=== PATIENT | female | born 1990 | race Hispanic/Latino ===

== ENCOUNTER 2018-05-22 01:45 | Emergency (ER) | payer OTHER ==
--- NOTE | 2018-05-22 07:57 | RAD ---
RIGHT SHOULDER 3 VIEWS: Date: 05/22/18 HISTORY: Injury, trauma, right shoulder pain. FINDINGS/IMPRESSION: No acute fracture or dislocation is identified. POS: [facility]
== END 2018-05-22 02:31 | disposition home or self-care (01) ==
LOC: ERS 01:45
DX: S40.011A Contusion of right shoulder, initial encounter (principal); W22.8XXA Striking against or struck by other objects, initial encounter

== ENCOUNTER 2018-08-26 10:42 | Outpatient (CLI) | payer MEDICAID ==
--- NOTE | 2018-08-26 12:42 | ULT ---
PELVIC ULTRASOUND INCLUDING TRANSABDOMINAL AND VASCULAR DUPLEX WITH COLOR AND SPECTRAL DOPPLER IMAGIN G: HISTORY: This is a 27-year-old female with a history of followup ovarian cyst. No transvaginal examination wa s performed. FINDINGS: The uterus measures 9.3 x 4.3 x 1.2 cm. The endometrium is 1.2 cm. The right ovary measures 1.3 x 1 .9 x 2.6 cm. The left ovary measures 1.7 x 1.9 x 2.8 cm. Vascular duplex with color and spectral Doppler imaging demonstrates vascular flow to both ovaries. No evidence for ovarian torsion. IMPRESSION: 1. Unremarkable pelvic ultrasound. 2. No evidence for significant ovarian cyst. POS: [facility]
== END 2018-08-26 10:43 | disposition home or self-care (01) ==
LOC: BICULT 10:42
PROVIDERS: ATTEND Family Medicine
DX: Z87.42 Personal history of other diseases of the female genital tract (principal)
CPT/HCPCS: 76856; 93976

== ENCOUNTER 2018-09-18 01:29 | Emergency (ER) | payer MEDICAID, OTHER ==
[2018-09-19] MEDS ORDERED: Adacel (T-DAP) 0.5 ML VIAL ONE (01:47)
[2018-09-19] MEDS ORDERED: Lidocaine 1% (PF) 30 ML VIAL ONE (03:07)
[2018-09-19] MEDS ORDERED: Acetaminophen 500 MG TAB ONE (03:41)
[2018-09-19 03:55] LABS: Pregnancy Test - Urine (BHCG) Negative (Negative)
[2018-09-19 03:56] LABS: Pregu Control Background? CLEAR/WHITE (CLR/WHITE); Pregu Control Bar Appear? YES (CONTROL BAR); Specific Gravity 1.026 (1.002-1.036)
--- NOTE | 2018-09-19 12:06 | RAD ---
RIGHT HAND 3 VIEWS: HISTORY: Cut hand while washing dishes. FINDINGS: No radiopaque foreign bodies are seen. I do not see any signs of fracture. IMPRESSION: No evidence of fracture or radiopaque foreign bodies. POS: [facility]
== END 2018-09-19 03:50 | disposition home or self-care (01) ==
LOC: ERS 09-19 01:29
DX: S61.111A Laceration without foreign body of right thumb with damage to nail, initial encounter (principal); W27.8XXA Contact with other nonpowered hand tool, initial encounter
CPT/HCPCS: 81025; 90471; 90715; J2001

== ENCOUNTER 2018-12-07 07:51 | Outpatient (CLI) | payer MEDICAID ==
--- NOTE | 2018-12-07 09:35 | ULT ---
LIMITED BILATERAL BREAST ULTRASOUND: DATE: 12/07/2018. PROVIDED CLINICAL HISTORY: Bilateral breast pain. FINDINGS: Limited sonographic interrogation was performed of each breast in the regions of patient pain. The s onographic appearance of the breast tissue in these regions is normal. IMPRESSION: No sonographic abnormality is evident in either breast to explain the patient's breast pain. Negativ e imaging findings should not preclude further evaluation of a clinically suspicious area. The patie nt is referred back to her clinician. POS: [facility]
== END 2018-12-07 07:52 | disposition home or self-care (01) ==
LOC: BICULT 07:51
PROVIDERS: ATTEND Advanced Practice Midwife
DX: N64.4 Mastodynia (principal)

== ENCOUNTER 2019-03-12 13:38 | Outpatient (CLI) | payer MEDICAID ==
--- NOTE | 2019-03-12 14:33 | ULT ---
PELVIC ULTRASOUND: Date: 03/12/19 COMPARISON: None. HISTORY: Painful periods for 1 year. History of ovarian cysts. TECHNIQUE: Multiplanar Daniels scale and color Doppler images were obtained in a transabdominal ultrasound. FINDINGS: The uterus is normal in size and appearance without focal abnormality. The endometrial stripe is norm al in thickness, measuring 8.0 mm. No free fluid is seen in the pelvis. Both ovaries are normal in size and appearance without focal abn ormality. IMPRESSION: Unremarkable exam. POS: [facility]
== END 2019-03-12 13:39 | disposition home or self-care (01) ==
LOC: BICULT 13:38
PROVIDERS: ATTEND Advanced Practice Midwife
DX: F41.9 Anxiety disorder, unspecified (principal)
CPT/HCPCS: 76856

== ENCOUNTER 2020-05-26 04:51 | Outpatient (CLI) | payer OTHER, SELFPAY ==
[2020-05-26 11:19] LABS: Mean Corpuscular HGB CONC 32.6 g/dL (32.0-36.0); Mean Corpuscular Hemoglobin 29.5 pg (27.0-31.0); Mean Corpuscular Volume 90.5 fL (78.0-98.0); Mean Platelet Volume 9.9 fL (7.4-10.4); Platelet Count 236 thou/uL (130-400); RBC Distribution Width 12.2 % (11.5-14.5); White Blood Cell (WBC) Count 7.6 thou/uL (4.8-10.8)
[2020-05-26 11:28] LABS: BHCG - Serum Negative (NEGATIVE); Pregs Control Background? CLEAR/WHITE (CLR/WHITE); Pregs Control Bar Appear? YES (CONTROL BAR)
[2020-05-27 12:37] LABS: SARS-CoV-2 MS2 Positive; SARS-CoV-2 N Gene Negative; SARS-CoV-2 S Gene Negative; SARS-CoV-2 orf1ab Negative
== END 2020-05-26 04:52 | disposition home or self-care (01) ==
LOC: LABBT 04:51
PROVIDERS: ATTEND Obstetrics & Gynecology
DX: Z01.812 Encounter for preprocedural laboratory examination (principal); Z11.59 Encounter for screening for other viral diseases; N80.3 Endometriosis of pelvic peritoneum
CPT/HCPCS: 84703; 85027; 86850; 86870; 86900; 86901; 87635; U0003

== ENCOUNTER 2020-05-29 06:06 | Day surgery (SDC) | payer OTHER, SELFPAY ==
[2020-05-25 09:14] VITALS: BMI 35.0
[2020-05-29] MEDS ORDERED: CeleCOXIB 100 MG CAP ONE (06:10)
[2020-05-29] MEDS ORDERED: Gabapentin 300 MG CAP ONE (06:10)
[2020-05-29] MEDS ORDERED: Famotidine/PF 20 mg/2ml Vial ONE (06:10)
[2020-05-29] MEDS ORDERED: Fentanyl 100 MCG/2 ML VIAL ONE ×3 (06:36→09:54)
[2020-05-29] MEDS ORDERED: Lidocaine 2% Jelly 5 ML TUBE ONE (06:36)
--- NOTE | 2020-05-29 06:39 | HP ---
HISTORY OF PRESENT ILLNESS: Ms. Naylor is a 29-year-old female, G2, P2 with two prior spontaneous vaginal deliveries, who has been having increasing chronic pelvic pain issues with dyspareunia. She also has irregular menstrual bleeding. She has had medical therapy trials of oral contraceptives of Loestrin 12/06 and had minimal improvement and also was placed on Orilissa 200 mg b.i.d. This did help her pain, but she started having abnormal liver function tests due to Orilissa and had to discontinue. She has had a tubal ligation and she does have a family history of endometriosis. She is desiring definitive surgical therapy. PAST MEDICAL HISTORY: Significant for asthma and reflux. PAST SURGICAL HISTORY: She has had an inguinal hernia repair and bilateral tubal ligations. FAMILY HISTORY: Noted for endometriosis. SOCIAL HISTORY: Nonsmoker. No excessive alcohol use. CURRENT MEDICATIONS: 1. Albuterol inhaler two puffs q.6 hours p.r.n. 2. She has cyclobenzaprine 10 mg tablet three times a day as needed for back muscle spasm. 3. Pantoprazole 40 mg tablet daily. PHYSICAL EXAMINATION: VITAL SIGNS: Height 5 feet 3 inches, weight 207 pounds, BMI 36.7, blood pressure is 138/86, pulse 96, respirations 18, and O2 saturation on room air 99%. HEENT: Within normal limits. CHEST: Clear to auscultation. HEART: Regular rate and rhythm. S1 and S2 heart sounds. No murmurs, rubs, or gallops. ABDOMEN: Soft, nontender, nondistended with no palpable masses. PELVIC: Vulva and vagina had no lesions. Cervix had no lesions. She is up-to-date with normal Pap smear in the past 3 years. Her uterus was not enlarged, but it was tender on exam. Adnexa had no masses, but were tender on exam. Transvaginal ultrasound that was obtained in my office showed normal appearing uterus and adnexal structures. A urinalysis also performed was negative. ASSESSMENT: This is a 29-year-old female, G2, P2 with prior tubal ligation with clinical findings consistent with adenomyosis of the uterus, endometriosis of the pelvis. She did have some improvement in her pain with Orilissa, but did not tolerate this due to abnormal liver enzyme elevations. PLAN: Plan is to proceed with definitive surgical therapy with robotic total laparoscopic hysterectomy with bilateral salpingo-oophorectomy. Risks and benefits of procedure have been discussed in detail. I did discuss use of estrogen post hysterectomy and removal of her ovaries due to her young age. She is set for surgery on 05/29. Job ID: [id number]
[2020-05-29] MEDS ORDERED: Bupivacaine PF 0.5% 30 ML VIAL ONE (06:55)
[2020-05-29] MEDS ORDERED: Lidocaine 1% w/Epinephrine 1:100K 20 ML VIAL ONE (06:55)
[2020-05-29] MEDS ORDERED: Levofloxacin 500 mg/D5W 100 ml Premix Bag ONE (07:01)
[2020-05-29] MEDS ORDERED: Clindamycin/D5W 900 mg/50 ml Premix Bag ONE (07:01)
[2020-05-29] MEDS ORDERED: Midazolam HCl 2 mg/2 ml Vial ONE (07:14)
[2020-05-29] MEDS ORDERED: Simethicone Chewable 80 MG TAB PO PRN (08:59)
[2020-05-29] MEDS ORDERED: diphenhydrAMINE 25 MG CAP PO PRN (08:59)
[2020-05-29] MEDS ORDERED: Ondansetron PF 4 MG/2 ML Vial IVP PRN (08:59)
[2020-05-29] MEDS ORDERED: Morphine 4 MG/ML VIAL SLOW IVP PRN (08:59)
[2020-05-29] MEDS ORDERED: Promethazine HCl 25 MG/ML VIAL IM PRN ×2 (08:59→09:10)
[2020-05-29] MEDS ORDERED: HYDROcodone/Acetaminophen 5/325 mg Tablet PO PRN ×2 (08:59)
[2020-05-29] MEDS ORDERED: Zolpidem Tartrate 5 MG TAB PO PRN (08:59)
[2020-05-29] MEDS ORDERED: Docusate 100 MG CAP PO SCH (09:00)
[2020-05-29] MEDS ORDERED: Estradiol 0.05mg/24 Hour Patch (Weekly) TD SCH (09:00)
[2020-05-29] MEDS ORDERED: Promethazine HCl 25 MG/ML VIAL SLOW IVP PRN (09:10)
[2020-05-29] MEDS ORDERED: Ondansetron HCl/PF 4 MG/2 ML Vial IVP PRN (09:10)
[2020-05-29] MEDS ORDERED: Estradiol 0.1mg/24 Hour Patch (Weekly) TD ONE (09:20)
--- NOTE | 2020-05-29 10:12 | OP ---
DATE OF PROCEDURE: 05/29/2020 PREOPERATIVE DIAGNOSES: 1. A 29-year-old female, G2, P2, with prior tubal ligation with menorrhagia, dysmenorrhea, chronic pelvic pain, unresponsive to and intolerant of medical therapy. 2. Presumed adenomyosis and endometriosis of the uterus and pelvis. POSTOPERATIVE DIAGNOSES: 1. A 29-year-old female, G2, P2, with prior tubal ligation with menorrhagia, dysmenorrhea, chronic pelvic pain, unresponsive to and intolerant of medical therapy. 2. Presumed adenomyosis and endometriosis of the uterus and pelvis. PROCEDURE PERFORMED: Robotic total laparoscopic hysterectomy and bilateral salpingo-oophorectomy. AUTOMOTIVE PROFESSIONAL SURGEON: MALLORIE Aparicio. ANESTHESIA: General endotracheal. ESTIMATED BLOOD LOSS: 25 mL. COMPLICATIONS: None. COUNTS: Correct x2. ANTIBIOTICS: Levaquin and clindamycin per [facility]IP protocol. PATHOLOGY: Uterus, cervix, bilateral tubes and ovaries. FINDINGS: 1. Bilateral fallopian tubes were status post tubal ligation and ovaries appeared normal. 2. Uterus was boggy and hyperemic, consistent with adenomyosis. 3. There were peritoneal windows in the posterior cul-de-sac from previous endometriotic scarring. 4. Clear urine present in Jj catheter postprocedure and bilateral ureteral peristalsis visualized postprocedure with ureter pathways inferior to the operative field site. DISPOSITION: Recovery room, stable. DESCRIPTION OF PROCEDURE: The patient previously received informed consent in regard to surgery. She was taken back to the operating room, where she received a general endotracheal anesthetic agent without complications. She was placed in the dorsal lithotomy position, prepped and draped in usual sterile fashion. Jj catheter was placed at this time. A side-arm speculum was placed in the vagina. The anterior lip of the cervix was grasped with a single-tooth tenaculum. The uterus was sounded to 8 cm. A size 8 cm LISA uterine manipulator with 4.0 cm cervical cup was placed. Tenaculum and speculum were removed. Attention was then turned to the abdomen, where perspective trocar sites were infiltrated with 0.5% Marcaine with epinephrine. A 12 mm supraumbilical incision was made and Veress needle was entered into the peritoneal cavity. The patient's pressure was noted to be less than 5 mm and the abdomen was insufflated to a patient's pressure of 15 mm and approximately 4.5 L of carbon dioxide gas. Veress needle was then removed and a size 12 mm trocar was placed. The robotic laparoscope was then introduced through the trocar sleeve, confirming proper entry. We then placed the patient in Trendelenburg position and additional bilateral lower quadrant 8 mm robotic trocars were placed under laparoscopic guidance along with the right upper quadrant 11 mm optometrist assistant port. I then broke scrub and my assistants docked the robot in usual fashion. I proceeded to carry out the surgery from the operative console while my assistants remained at the bedside. The uterus was elevated from the pelvis. Bilateral adnexal structures were identified with the previously mentioned findings. My optometrist assistant grasped the fimbria of the left fallopian tube and then I took down some sigmoid colon adhesions to the IP ligament and the filmy adhesion surface atraumatically. The IP ligament was then coagulated hugging close to the ovary, coagulated with bipolar fenestrated cautery and transected. Serial coagulation of the broad ligament hugging close to uterine specimen was carried out with coagulation and transection until the left round ligament was reached. It was then coagulated and transected. The anterior leaf of the broad ligament was entered and the vesicouterine peritoneum reflection was incised with monopolar scissors and direct visualization. Also skeletonization of the uterine vessels was carried out both taking down the peritoneum anteriorly and posteriorly. I coagulated the uterine vessels after skeletonization of the internal cervical os region. I then proceeded in a layering technique to take down the vesicouterine peritoneum and bladder safely past the cervicovaginal margin. Once this was completed, we carried out the same procedure on the right side, again the right IP ligament was isolated, it was coagulated hugging close to the ovary. It was transected after bipolar coagulation and then with serial coagulation of broad ligament hugging close to the specimen of the uterus, it was coagulated and transected again until the right round ligament was reached. It was coagulated and transected again, anterior leaf of the peritoneum was entered and this was dissected, completing the vesicouterine peritoneal dissection, dropping the bladder past the cervicovaginal margin. Again, the uterine vessels were skeletonized anteriorly and posteriorly and coagulated meticulously at the internal cervical os region. Once we felt we had adequately dropped the bladder past the operative field and the uterine vessels were secured with hemostasis, the anterior colpotomy was then performed, it started from 12 to 3 and 12 to 9 o'clock positions. The uterine vessels that remained at the 3 o'clock and 9 o'clock positions were coagulated with inside of the cut surface. Then, the posterior colpotomy was completed from 6 to 3 and 6 to 9 o'clock. The specimen was then delivered through the vaginal vault. My optometrist assistant switched out the monopolar scissor with a Nicolas needle piledriver carpenter. This allowed for me to run the vaginal cuff and coagulate any areas of oozing or bleeding with the bipolar fenestrated cautery. Once this was under control, the Stratafix suture was brought in by my optometrist assistant from the right upper quadrant port. I then closed the vaginal cuff in full-thickness closure starting at the right angle back to the left angle and back towards the midline. The excess suture and needle were then cut and removed through the right upper quadrant port. The pelvis was irrigated and suctioned. All pedicles were noted to be hemostatic. The bladder and the Jj were draining clear urine. I inspected the ureteral pathways again and they were all noted to be peristalsing and the path of the ureters was inferior to the operative pedicle sites. We then undocked the robot after the CO2 gas was released. I then rescrubbed and placed a deep stitch of 0 Vicryl in [id number] stitch fashion in the fascial defect in the umbilicus. The trocar sites were then closed subcuticularly with 4-0 Monocryl and Dermabond. A sponge stick was utilized to inspect the vaginal vault and hemostasis in the vagina was confirmed. The patient was awakened and transferred to recovery room in stable condition. Job ID: [id number]
[2020-05-29] MEDS: Ketorolac Tromethamine 30 MG/ML VIAL IVP SCH ×2 (11:35→17:49)
[2020-05-29] MEDS ORDERED: Ondansetron PF 4 MG/2 ML Vial ONE (11:58)
[2020-05-29] MEDS ORDERED: Rocuronium Bromide 10 MG/ML (10ML VIAL) ONE (11:58)
[2020-05-29] MEDS ORDERED: Esmolol 100 MG/10 ML VIAL ONE (11:58)
[2020-05-29] MEDS ORDERED: PROPOFOL 200 MG/20 ML VIAL ONE (11:58)
[2020-05-29] MEDS ORDERED: Dexamethasone 20 MG/5 ML VIAL ONE (11:58)
[2020-05-29] MEDS ORDERED: Glycopyrrolate 0.2 MG/ML 5 ML SYRINGE ONE (11:58)
[2020-05-29] MEDS ORDERED: Lidocaine 1% PF 5 ML VIAL ONE (11:58)
[2020-05-29] MEDS ORDERED: Ketorolac Tromethamine 30 MG/ML VIAL ONE (11:58)
[2020-05-29] MEDS: Sodium Chloride 0.9% 1,000 ML IV SCH ×2 (14:34→18:29)
[2020-05-29 18:19] VITALS: BP 131/74; TEMP 97.4
[2020-05-30] MEDS ORDERED: Ibuprofen 800 MG TAB PO SCH (06:00)
== END 2020-05-29 20:30 | disposition home or self-care (01) ==
LOC: SDC 06:06 → 3SW 11:23 → SDC 20:30
PROVIDERS: ATTEND Obstetrics & Gynecology
PROC: 0UT74ZZ Resection of Bilateral Fallopian Tubes, Percutaneous Endoscopic Approach (ICD-10-PCS; principal; 2020-05-29)
PROC: 0UT94ZZ Resection of Uterus, Percutaneous Endoscopic Approach (ICD-10-PCS; principal; 2020-05-29)
PROC: 0UT24ZZ Resection of Bilateral Ovaries, Percutaneous Endoscopic Approach (ICD-10-PCS; principal; 2020-05-29)
DX: N80.0 Endometriosis of uterus (principal); N80.3 Endometriosis of pelvic peritoneum; N83.12 Corpus luteum cyst of left ovary; N83.11 Corpus luteum cyst of right ovary; K21.9 Gastro-esophageal reflux disease without esophagitis; J45.909 Unspecified asthma, uncomplicated; Z79.899 Other long term (current) drug therapy; Z88.0 Allergy status to penicillin
CPT/HCPCS: 36415; 86850; 86900; 86901; 88307; J0690; J1100; J1885; J1956; J2250; J2270; J2405; J2704; J3010; J3490; S0020; S0028

== ENCOUNTER 2021-04-19 07:30 | Outpatient (CLI) | payer BC | END 2021-04-19 07:31 | disposition home or self-care (01) | LOC: CT 07:30 | PROVIDERS: ATTEND Nurse Practitioner Family | DX: R10.2 Pelvic and perineal pain (principal); N20.0 Calculus of kidney; D17.9 Benign lipomatous neoplasm, unspecified; Z90.710 Acquired absence of both cervix and uterus | CPT/HCPCS: 74178 ==

== ENCOUNTER 2022-03-25 17:00 | Outpatient (CLI) | payer BC, MEDICAID | END 2022-03-25 17:01 | disposition home or self-care (01) | LOC: SLEEPLAB 17:00 | PROVIDERS: ATTEND Internal Medicine Critical Care Medicine | DX: G47.33 Obstructive sleep apnea (adult) (pediatric) (principal); F41.9 Anxiety disorder, unspecified; R09.89 Other specified symptoms and signs involving the circulatory and respiratory systems; R51.9 Headache, unspecified; R06.83 Snoring; I10 Essential (primary) hypertension | CPT/HCPCS: 95800 ==

== ENCOUNTER 2023-10-23 13:25 | Outpatient (CLI) | payer BC | END 2023-10-23 13:26 | disposition home or self-care (01) | LOC: BICMAMMO 13:25 | PROVIDERS: ATTEND Family Medicine | DX: N63.10 Unspecified lump in the right breast, unspecified quadrant (principal); N63.20 Unspecified lump in the left breast, unspecified quadrant | CPT/HCPCS: 76642; 77066; G0279 ==